=== PATIENT | female | born 1950 | race Caucasian/White ===

== ENCOUNTER 2024-05-01 05:07 | Emergency (ER) | payer MEDICARE ==
[~2024-05-01] VITALS: Wt 89.0 kg
[2024-05-01 05:09] VITALS: TEMP 98.5
[2024-05-01] MEDS ORDERED: Tranexamic Acid 1,000 MG/10 ML VIAL IH ONE (05:30)
[2024-05-01 05:36] LABS: HEMOGLOBIN 11.8 g/dl (12.5-16.0); MEAN CELL VOLUME 109 fl (80.0-100.0); MEAN CORPUSCULAR HEMOGLOBIN 36 pg (27-31); MEAN CORPUSCULAR HGB CONC 33 g/dl (33.0-37.0); MEAN PLATELET VOLUME 10.7 fl (7.4-10.4); PLATELET COUNT 127 K/mm3 (130-400); RED BLOOD COUNT 3.28 M/mm3 (4.10-5.30); REDCELL DISTRIBUTION WIDTH-CV 14.3 % (11.5-14.5)
[2024-05-01 05:37] LABS: HEMATOCRIT 35.8 % (37.0-47.0)
[2024-05-01 05:40] LABS: INR 1.4 (0.8-3.0); PROTHROMBIN TIME 14.8 SECONDS (9.7-12.8)
[2024-05-01 06:28] VITALS: BP 137/84; PULSE 105
[2024-05-01] MEDS ORDERED: Ondansetron 4 MG/2 ML VIAL IV ONE (07:00)
[2024-05-01] MEDS ORDERED: PRINZIDE 12.5 M1 TA1 PO (13:39)
[2024-05-02] MEDS ORDERED: AZO-CRANBERRY450 MG (10:59)
[2024-05-02] MEDS ORDERED: FOLIC ACID 11 MG/TA1 PO (15:23)
[2024-05-02] MEDS ORDERED: NATURE'S BLEND100 M2 PO (15:23)
[2024-05-02] MEDS ORDERED: DUO-KAPS1 CAP PO (15:23)
[2024-05-02] MEDS ORDERED: PROTONIX 40MG T40 MG PO (15:23)
== END 2024-05-01 07:00 | disposition home or self-care (01) ==
LOC: COL.ER 05:07
PROVIDERS: Emergency Medicine
DX: R04.0 Epistaxis (principal)
CPT/HCPCS: J2405

== ENCOUNTER 2024-05-01 08:29 | Observation (INO) | payer MEDICARE ==
[2024-05-01] VITALS (7 sets, daily range): BP systolic 135–165; BP diastolic 78–91; PULSE 84–106; TEMP 97.6–98.7
[~2024-05-01] VITALS: Ht 157.5 cm; Wt 97.4 kg
[2024-05-01] MEDS ORDERED: Pantoprazole 40 MG in NS 10 ML IV ONE (10:15)
[2024-05-01] MEDS ORDERED: Ondansetron 4 MG/2 ML VIAL IV ONE (10:15)
[2024-05-01] MEDS ORDERED: NS 1,000 ML IV ONE (10:15)
[2024-05-01 10:54] LABS: BASO # 0.1 K/mm3 (0.0-0.2); BASO % 0.6 % (0.0-2.0); EOS % 0.2 % (0.0-4.0); GRAN # 6.2 K/mm3 (1.4-6.5); GRAN % 77.3 % (42.2-75.2); HEMOGLOBIN 11.3 g/dl (12.5-16.0); MEAN CELL VOLUME 108 fl (80.0-100.0); MEAN CORPUSCULAR HEMOGLOBIN 35 pg (27-31); MEAN CORPUSCULAR HGB CONC 33 g/dl (33.0-37.0); MEAN PLATELET VOLUME 10.8 fl (7.4-10.4); MONO # 0.8 K/mm3 (0.1-0.6); MONO % 9.7 % (1.7-9.3); PLATELET COUNT 114 K/mm3 (130-400); REDCELL DISTRIBUTION WIDTH-CV 14.3 % (11.5-14.5)
[2024-05-01 10:56] LABS: HEMATOCRIT 34.4 % (37.0-47.0)
[2024-05-01 11:08] LABS: ALBUMIN 2.8 g/dL (3.4-4.8); BILIRUBIN,TOTAL 4.2 mg/dL (0.2-1.2); CALCIUM 9.1 mg/dL (8.4-10.2); CREATININE, serum 0.87 mg/dL (0.57-1.11); TOTAL PROTEIN 6.3 g/dl (6.2-8.1)
[2024-05-01 11:48] LABS: PH 5.5 (5.0-8.5); URINE APPEARANCE Clear (CLEAR/HAZY); URINE COLOR Amber (YELLOW); URINE GLUCOSE TRACE (NEGATIVE); URINE KETONE 1+ (NEGATIVE); URINE NITRATE Positive (NEGATIVE); URINE PROTEIN(semi-quant) 1+ (NEGATIVE)
[2024-05-01 11:49] LABS: URINE BLOOD 2+ (NEGATIVE)
[2024-05-01] MEDS ORDERED: NS 100 ML IV SCH (11:49)
[2024-05-01] MEDS ORDERED: Iohexol 300 - 100 ML VIAL IV ONE (11:50)
[2024-05-01 11:54] LABS: COLLECTION METHOD CLEAN CATCH
[2024-05-01] MEDS ORDERED: LR 1,000 ML IV ONE (12:00)
[2024-05-01] MEDS ORDERED: Pantoprazole 40 MG in NS 100 ML IV ONE (13:15)
[2024-05-01] MEDS ORDERED: PRINZIDE 12.5 M1 TA1 PO (13:39)
[2024-05-01] MEDS ORDERED: Folic Acid 1 MG TAB PO SCH (13:58)
[2024-05-01] MEDS ORDERED: Mag/Al Hydrox/Simeth Susp 30 ML CUP PO PRN (14:00)
[2024-05-01] MEDS ORDERED: LORazepam 2 MG/ML 1 ML VIAL IV PRN (14:00)
[2024-05-01] MEDS ORDERED: Ondansetron 4 MG/2 ML VIAL IV PRN (14:00)
[2024-05-01] MEDS ORDERED: Acetaminophen 325 MG TAB PO PRN (14:00)
[2024-05-01] MEDS ORDERED: Polyethylene Glycol 3350 17 GM PDS PO PRN (14:00)
[2024-05-01] MEDS ORDERED: Docusate Sodium 100 MG CAP PO PRN (14:00)
[2024-05-01 14:28] LABS: HEMOGLOBIN 11.1 g/dl (12.5-16.0)
--- NOTE | 2024-05-01 14:30 | NUR ---
PT ARRIVED TO UNIT AT THIS TIME VIA STRETCHER. ABLE TO AMBULATE TO ROOM BED X1 ASSIST. ON ROOM AIR. WEARING GLASSES. MELISSA LYNN AT BEDSIDE.
[2024-05-01 15:22] LABS: INR 1.7 (0.8-3.0); PROTHROMBIN TIME 17.9 SECONDS (9.7-12.8)
[2024-05-01] MEDS ORDERED: SODIUM CHLORIDE NS PRN (15:30)
[2024-05-01] MEDS ORDERED: Magnesium Sulfate 8% 50 ML IV ONE (15:30)
--- NOTE | 2024-05-01 16:27 | NUR ---
ENT ANSWERING SERVICE PLACED CALL TO HYDROGEN POWER PLANT ENGINEER PHYSICIAN REGARDING NEW CONSULT
[2024-05-01] MEDS ORDERED: Pantoprazole 40 MG in NS 10 ML IV SCH (16:30)
[2024-05-01 16:38] LABS: TRICYCLIC ANTIDEPRESS URINE NEGATIVE (NEGATIVE)
--- NOTE | 2024-05-01 16:59 | NUR ---
SW met with patient to complete intake. Patient provides she resides in [facility] and is here currently visiting grand daughter Sarah. Patient provides her DPOA/HC is nephranjit Holliday [phone]. Patient provides she does not utilize any DME at this time, is independent with ADLS, and does not utilize home health services. Patient states her PCP is Dr. Vidal Walker of [place], and pharmacy is [facility]. Patient states her discharge plan post hospitilization is staying with amaury for a few days before returning back home. SW will continue to follow. Discharge plan: staying with grand daughter for a few days before returning home.
[2024-05-01] MEDS ORDERED: Multivitamin TAB PO SCH (17:00)
--- NOTE | 2024-05-01 17:17 | NUR ---
LOCK SETTER ENT PHYSICIAN CALLED THIS NURSE AND STATED THAT PT TO BE SEEN FOR 3 DAY FOLLOW-UP APPOINTMENT
[2024-05-01] MEDS ORDERED: Propranolol 10 MG TAB PO SCH (18:00)
--- NOTE | 2024-05-01 20:00 | NUR ---
Assessment complete. A&Ox3. Denies pain/nausea/shortness of breath. VS stable. INT to right forearm and right AC-flush without difficulty. Rhino rocket to left nostril. Not scoring on CIWA. Noted to have bilat upper ext bruising as well as a skin tear on left hand. Denies having any dark stools so far. Plan of care discussed for this shift to include meds/NPO@0000/calling for questions/concerns. Verbalizes understanding. Call light in reach. Will monitor.
[2024-05-01 20:12] LABS: HEMOGLOBIN 10.1 g/dl (12.5-16.0)
[2024-05-01 20:17] LABS: HEMATOCRIT 31.4 % (37.0-47.0)
[2024-05-01 22:21] LABS: HEMOGLOBIN 10.4 g/dl (12.5-16.0)
[2024-05-01 22:23] LABS: HEMATOCRIT 31.4 % (37.0-47.0)
[2024-05-02] VITALS (15 sets, daily range): BP systolic 114–154; BP diastolic 48–91; PULSE 65–82; TEMP 98.1–98.4
--- NOTE | 2024-05-02 00:30 | NUR ---
Patient resting eyes closed. No s/s of pain or discomfort noted. Will monitor.
[2024-05-02 02:11] LABS: HEMATOCRIT 27.8 % (37.0-47.0); HEMOGLOBIN 9.4 g/dl (12.5-16.0)
--- NOTE | 2024-05-02 06:32 | NUR ---
Dr Khan notified of GI consult.
[2024-05-02 06:58] LABS: BASO # 0.1 K/mm3 (0.0-0.2); BASO % 0.7 % (0.0-2.0); EOS # 0.4 K/mm3 (0.0-0.7); EOS % 4.2 % (0.0-4.0); GRAN # 5.9 K/mm3 (1.4-6.5); GRAN % 67.9 % (42.2-75.2); LYMPH # 1.7 K/mm3 (1.2-3.4); MEAN CELL VOLUME 107 fl (80.0-100.0); MEAN CORPUSCULAR HGB CONC 34 g/dl (33.0-37.0); MEAN PLATELET VOLUME 11.6 fl (7.4-10.4); MONO # 0.6 K/mm3 (0.1-0.6); PLATELET COUNT 94 K/mm3 (130-400); RED BLOOD COUNT 2.68 M/mm3 (4.10-5.30); REDCELL DISTRIBUTION WIDTH-CV 14.4 % (11.5-14.5)
[2024-05-02 07:07] LABS: HEMATOCRIT 28.7 % (37.0-47.0); HEMOGLOBIN 9.7 g/dl (12.5-16.0); MEAN CORPUSCULAR HEMOGLOBIN 36 pg (27-31)
[2024-05-02 07:14] LABS: CALCIUM 8.4 mg/dL (8.4-10.2); CREATININE, serum 0.79 mg/dL (0.57-1.11); POTASSIUM 3.9 mEq/L (3.5-4.5)
--- NOTE | 2024-05-02 08:00 | NUR ---
PT AWAKE AND RESTING IN BED UPON ENTERING ROOM. SCHEDULED MEDS GIVEN PER eMAR. DENIES N/V AND PAIN. RHINO ROCKET IN PLACE IN LEFT NARE. PT STATES THAT DARK, TARRY STOOLS ARE LESS IN FREQUENCY. CALL LIGHT WITHIN REACH AND BED ALARM ON. NO FURTHER CONCERNS.
[2024-05-02] MEDS ORDERED: Ondansetron 4 MG/2 ML VIAL IV PRN (08:30)
[2024-05-02] MEDS ORDERED: LR 1,000 ML IV SCH (09:15)
[2024-05-02] MEDS ORDERED: AZO-CRANBERRY450 MG (10:59)
[2024-05-02 11:05] LABS: HEMATOCRIT 28.2 % (37.0-47.0); HEMOGLOBIN 9.3 g/dl (12.5-16.0)
--- NOTE | 2024-05-02 11:40 | NUR ---
D: Ski Patrol Director stopped by room on rounds. A: Pt was resting and content. Pt is from [place] and is here visiting her grand-daughter. Pt has no needs right now. Pt appreciated the visit. P: Ski Patrol Director informed pt that if she needed anything from the building maintenance technician area to let her nurse know. Ski Patrol Director will follow up as needed.
--- NOTE | 2024-05-02 12:14 | NUR ---
THIS NURSE CALLED ENDO AND ASKED IF THEY WANTED PT TO GET SCHEDULED PROPRANOLOL AT THIS TIME AND NOTIFIED TO NOT GIVE MED
--- NOTE | 2024-05-02 13:23 | NUR ---
PT OFF OF UNIT AT THIS TIME TO ENDOSCOPY VIA STRETCHER.
[2024-05-02] MEDS ORDERED: Lidocaine PF 2% (20 MG/ML) 5 ML VIAL ONE (13:50)
--- NOTE | 2024-05-02 14:30 | NUR ---
PT BACK ONTO FLOOR AT THIS TIME, ABLE TO AMBULATE TO BED WITH A WALKER AND STANDBY ASSIST. D/C LR FLUIDS.
--- NOTE | 2024-05-02 15:11 | NUR ---
pole frame construction worker notes pt was reccomended for Home Health. SW provided pt with the Medicare.gov list in her [place], [place] area. She was agreeable to review this and reports her late had this. She intends to return to her grand-daughter's and did note therapist and her grand-daughter had concerns of her driving back to [place]. SW agreed with this reccomendation and she states her grand-daughter will likely drive back with her. DANIEL advised pt can review the HH list and follow-up with her PCP as she does not want to stay in [place] longer than she has to. DANIEL verbalized understanding of this request. Discharge Plan: Home, offered HH
--- NOTE | 2024-05-02 15:15 | NUR ---
PT TOLERATING GENERAL DIET AFTER EGD, DR YANG UPDATED
[2024-05-02] MEDS ORDERED: DUO-KAPS1 CAP PO (15:23)
[2024-05-02] MEDS ORDERED: NATURE'S BLEND100 M2 PO (15:23)
[2024-05-02] MEDS ORDERED: FOLIC ACID 11 MG/TA1 PO (15:23)
[2024-05-02] MEDS ORDERED: PROTONIX 40MG T40 MG PO (15:23)
--- NOTE | 2024-05-02 16:50 | NUR ---
2 INTS REMOVED AND PT DRESSED IN PERSONAL CLOTHES. PT BELONGINGS GATHERED AT BEDSIDE.
--- NOTE | 2024-05-02 17:00 | NUR ---
REVEIW DISCHARGE INSTRUCTIONS WITH PT INCLUDING F/U APPTS, NEW MEDICATIONS, AND EDUCATION. PT VERBALIZED UNDERSTANDING. PT ESCORTED OFF OF UNIT AT THIS TIME VIA WHEELCHAIR BY STAFF.
[2024-05-03] MEDS ORDERED: Thiamine 100 MG TAB PO SCH (09:00)
== END 2024-05-02 17:26 | disposition home or self-care (01) ==
LOC: COL.ER 08:29 → MEDICAL 13:55
PROVIDERS: Emergency Medicine; Family Medicine; ADMIT Internal Medicine
DX: K22.2 Esophageal obstruction (principal); K29.60 Other gastritis without bleeding; K29.80 Duodenitis without bleeding; K26.9 Duodenal ulcer, unspecified as acute or chronic, without hemorrhage or perforation; R04.0 Epistaxis; K92.1 Melena; R00.0 Tachycardia, unspecified; R26.89 Other abnormalities of gait and mobility; F10.90 Alcohol use, unspecified, uncomplicated; K74.60 Unspecified cirrhosis of liver; I10 Essential (primary) hypertension; Z79.899 Other long term (current) drug therapy
CPT/HCPCS: G0378; J2405; J2470; J2704; J3475; J7030; J7120; Q9967